=== PATIENT | female | born 1980 | race Caucasian/White ===

== ENCOUNTER 2023-04-06 16:37 | Emergency (ER) | payer SELFPAY ==
[2023-04-06] VITALS (7 sets, daily range): BP systolic 120–159; BP diastolic 80–103; PULSE 81–105; RESP 17–21; TEMP 36.7; O2SAT 96–99; BMI 28.3
[2023-04-06] MEDS: morphine 4 mg/mL SDV 1 mL IVP (16:50)
[2023-04-06] MEDS: orphenadrine 30 mg/mL Inj 2 mL 60 MG IVP (16:50)
[2023-04-06] MEDS: dexamethasone 10 mg/mL INJ IM (16:52)
--- NOTE | 2023-04-06 16:52 | W.ED.BACK ---
HPI - Back Pain/Injury General: Chief Complaint: Back Pain/Injury Stated Complaint: Fall/ Low back pain Time Seen by Provider: 04/06/23 16:38 Source: patient Mode of arrival: ambulatory History of Present Illness: 42-year-old female presents emergency room via EMS complaining of low back pain. She was at home in her kitchen she bent over to lemon picker a toaster from a bottom shelf little start back spasm reports she has a little time straightening up or moving. She reports she took 2 Aleve and 2 shots of vodka as well as 81 mg aspirin. And round she was given IV Toradol. On arrival here she is laying in the right lateral recumbent position she denies any numbness tingling lower extremities. No bowel or bladder dysfunction she has not previously had back surgery she has had nerve impingements in the low back in the past. MD elicited complaint: back pain Pertinent past history: prior back pain Exacerbating factors: none Relieving factors: none Associated symptoms: Deny abdominal pain, arthralgias, chills, change in bowel habits, difficulty walking, dysuria, fatigue, fecal incontinence, fever(s), hematuria, myalgias, nausea, numbness, syncope, tingling/numbness/burning, urinary frequency, urinary urgency, vomiting or weakness Review of Systems Const: Denies: fever(s), chills or fatigue Card: Denies: syncope Resp: Denies: dyspnea GI: Denies: abdominal pain, nausea, vomiting, fecal incontinence or change in bowel habits : Denies: dysuria, urinary urgency or hematuria Musc: Denies: neck pain or back pain Skin/Breast: Denies: rash Neuro: Denies: difficulty walking Physical Exam Const: COMMON NORMALS: no acute distress GENERAL APPEARANCE: cooperative and comfortable ORIENTATION/CONSCIOUSNESS: Yes awake, Yes oriented to person, Yes oriented to place and Yes oriented to time HENMT: COMMON NORMALS: normocephalic, atraumatic and hearing grossly normal bilaterally HEAD & SCALP: normocephalic and atraumatic Resp: COMMON NORMALS: normal respiratory effort, No retractions, No use of accessory muscles and clear to auscultation bilaterally AUSCULTATION: clear to auscultation bilaterally Cardio: COMMON NORMALS: regular rate, regular rhythm and No murmurs present (Cardio) RATE: regular rate RHYTHM: regular rhythm Extremity: COMMON NORMALS: normal to inspection, capillary refill normal, no clubbing, cyanosis or edema, no calf tenderness and no pedal edema Neuro: SENSORIUM/ORIENTATION: Yes oriented to person, Yes oriented to place and Yes oriented to time Skin: COMMON NORMALS: no rashes or lesions noted GENERAL SKIN EXAM: no rashes or lesions noted Course Vital Signs: Vital signs: Vital Signs Temperature 98.0 F 04/06/23 16:37 Pulse Rate 82 04/06/23 17:56 Respiratory Rate 20 H 04/06/23 17:01 Blood Pressure 120/91 04/06/23 17:56 Pulse Oximetry 98 04/06/23 17:56 Oxygen Delivery Me thod Room Air 04/06/23 17:56 MDM - Back Pain/Injury Medical Decision Making No red flag symptoms. Back pain improved with meds given discharged home steroid taper anti-inflammatories muscle relaxers pain medications follow-up with primary care Medical Records I reviewed the patient's medical records. Labs I reviewed the patient's lab results. No radiology studies performed this visit Discharge Plan Discharge Patient Disposition: Home Clinical Impression: Strain of lumbar region Condition: Stable Prescriptions: New tizanidine 4 mg tablet 4 mg PO Q6H PRN (Reason: muscle spasticity) Qty: 20 0RF Rx Instructions: do not exceed 3 doses per 24 hrs prednisone 20 mg tablet 20 mg PO TID Qty: 15 0RF Rx Instructions: 1 p.o. 3 times daily x3 days, 1 p.o. twice daily x2 days, 1 p.o. daily x2 days diclofenac sodium 75 mg tablet,delayed release (DR/EC) 75 mg PO Q12H PRN (Reason: pain) Qty: 20 0RF hydrocodone-acetaminophen 5-325 mg tablet 1 tab PO Q6H PRN (Reason: pain) Qty: 10 0RF Discharge Orders: Discharge ED (Routine); Ordered 04/06/23 Ordered By: Jerel Carpenter Referrals: Noel Teixeira MD [Primary Care Provider] - Discharge Diet: Usual diet Discharge Activity: Resume usual activity Patient Instructions: Acute Low Back Pain (ED), Opioid Safety, Pain Management Activity Restrictions/Additional Instructions: Thank you for choosing [facility] for your healthcare needs today. Please realize this is an emergency room and that we are providing you with a medical screening exam and this may not be complete and all inclusive of all the testing and or work up that you may need to determine your ailment or severity of your illness. It is very important that you follow up as instructed or that you return to the Emergency Department should you have concerns or if your condition changes or worsens in any way. Coding Level of Care Code ED Improvement Auditor for Bren Elam
== END 2023-04-06 18:20 | disposition home or self-care (01) ==
PROVIDERS: Emergency Provider Family Medicine; PCP Family Medicine
DX: S39.012A Strain of muscle, fascia and tendon of lower back, initial encounter (principal); X50.1XXA Overexertion from prolonged static or awkward postures, initial encounter
CPT/HCPCS: 96374; 96375; 99284; J1100; J2270; J2360

== ENCOUNTER 2025-03-19 22:03 | Emergency (ER) | payer BC, SELFPAY ==
[2025-03-19 22:08] VITALS: BP 189/114; PULSE 67; RESP 18; TEMP 36.6; O2SAT 99; BMI 28.3
--- OUTSIDE RECORDS SUMMARY | 2025-03-19 22:09 | XMS_ITS | Encounter Summary ---
Author Organization [facility] Address [address] [place] [address] Care Team Providers Care Clinical Specialist Name Role Phone Mayte Whalen Primary Care Provider [phone] Encounter Details Date Type Department Care Team (Late st Contact Info) Description 02/28/2025 Results Follow-Up [facility] Endocrinology [facility] [address] [place] [address] Judi Norton PA [address] [place] [address] T3 FREE, T4 FREE, TSH Social History Tobacco Use Types Packs/Day Years Used Date Smoking Tobacco: Former Cigarettes Smokeless Tobacco: Never Alcohol Use Standard Drinks/Week Comments Yes 2 (1 standard drink = 0.6 oz pur e alcohol) Feeling Safe Answer Date Recorded Are you in a relationship wi th someone who hurts you emotionally and/or physically? 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 Gender Identity Not on file Sexual Orientation Not on file documented as of this encounter Plan of Treatment Upcoming Encounters Date Type Department Care Team (Late st Contact Info) Description 01/01/2026 12:50 PM CDT Office Visit [facility] Endocrinology [facility] [address] [place] [address] Judi Norton PA [address] [place] [address] documented as of this encounter Visit Diagnoses Not on filedocumented in this encounter Additional Health Concerns Assessment Noted Time PHQ-9 Depression Total Score: 2 05/09/19 25 9:19 AM MARGARINE MAKER documented as of this encounter Care Teams Clinical Specialist Relationship Specialty Start Date End Date Mayte Whalen DO [address] [place] [address] PCP - General Family Practice 05/09/24 documented as of this encounter
--- OUTSIDE RECORDS SUMMARY | 2025-03-19 22:09 | XMS_ITS | Encounter Summary ---
Author Organization [facility] Address 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[employer] Gender Identity Not on file Sexual Orientation Not on file documented as of this encounter Plan of Treatment Upcoming Encounters Date Type Department Care Team (Late Contact Info) Description 01/01/2026 12:50 PM CDT Office Visit [facility] Endocrinology [facility] [address] [place] [address] Judi Norton PA [address] [place] [address] documented as of this encounter Visit Diagnoses Not on filedocumented in this encounter Additional Health Concerns Assessment Noted Time PHQ-9 Depression Total Score: 2 05/09/19 25 9:19 AM TERRITORY SALES MANAGER MEDICAL documented as of this encounter Care Teams Applied Exercise Physiologist Relationship Specialty Start Date End Date Mayte Whalen DO [address] [place] [address] PCP - General Family Practice 05/09/24 documented as of this encounter
--- OUTSIDE RECORDS SUMMARY | 2025-03-19 22:09 | XMS_ITS | Clinical Summary ---
Author Organization [facility] Travis lorenz [place] Address [address] [place] [address] Phone Care Team Providers Care Area Mechanic Name Role Phone Mayte Whalen Primary Care Provider Allergies Active Allergy Reactions Criticality Noted Date Comments Promethazine Hives High 05/09/2024 Medications omeprazole (PriLOSEC) 20 mg Capsule, Delayed Release(E.C.) Take 20 mg by mouth daily. Active methIMAzole (TAPAZOLE) 10 mg tabletIndicatio ns:Hyperthyroid ism Take 20 mg by mouth in the morning and 10 mg in the afternoon. 90 Tablet 3 5 Active dicyclomine (BENTYL) 20 mg tabletIndicatio ns:Abdominal spasms Take 1 Tablet (20 mg) by mouth 4 times daily. 120 Tablet 1 5 Active Additional Information Patient not taking.Reported on 01/01/2025 propranoloL (INDERAL) 20 mg tablet Take 1 Tablet (20 mg) by mouth 3 times daily. 270 Tablet 3 Active Active Problems Problem Noted Date Diagnosed Date Fibroadenoma of right breast in female 5 Hyperthyroidism 05/10/2024 History of hyperthyroidism 05/09/2024 Encounters Date Type Department Care Team Description 03/18/2025 External Device Data STL ABSTRACTION Provider, Abstract 03/18/2025 External Device Data STL ABSTRACTION Provider, Abstract 03/11/2025 External Device Data STL ABSTRACTION Provider, Abstract 03/04/2025 Orders Only [facility] [address] [place] [address] Judi Norton PA Hyperthyroidism (Primary Dx); Multiple thyroid nodules 02/28/2025 Results Follow-Up [facility] [address] [place] [address] Judi Norton PA T3 FREE, T4 FREE, TSH 02/25/2025 External Device Data STL ABSTRACTION Provider, Abstract 02/24/2025 9:08 AM RABBIT DRESSER - 02/24/2025 11:59 PM RABBIT DRESSER Hospital Encounter [facility] [place] [address] [phone] Judi Norton PA Discharge Disposition: Home or Self Care 02/19/2025 External Device Data STL ABSTRACTION Provider, Abstract 02/19/2025 External Device Data STL ABSTRACTION Provider, Abstract 02/12/2025 External Device Data STL ABSTRACTION Provider, Abstract 01/28/2025 External Device Data STL ABSTRACTION Provider, Abstract 01/28/2025 External Device Data STL ABSTRACTION Provider, Abstract 01/07/2025 External Device Data STL ABSTRACTION Provider, Abstract 01/01/2025 11:00 AM CDT Office Visit [place] [address] [place] [address] Judi Norton PA Hyperthyroidism (Primary Dx); Multiple thyroid nodules 12/31/2024 7:18 AM CDT - 12/31/2024 11:59 PM CDT Hospital Encounter [facility] [place] [address] [phone] Judi Norton PA Thyrotoxicosis, unspecified without thyrotoxic crisis or storm Discharge Disposition: Home or Self Care 12/31/2024 7:00 AM CDT - 12/31/2024 11:59 PM CDT Hospital Encounter [facility] Ul[facility] [place] [address] [facility] [facility] [address] [place] [address] Judi Norton PA Discharge Disposition: Home or Self Care 12/25/2024 External Device Data STL ABSTRACTION Provider, Abstract 12/17/2024 External Device Data STL ABSTRACTION Provider, Abstract from Last 3 Months Family History Medical History Relation Name Comments Hypertension Mother Relation Name Status Comments Mother Social History Tobacco Use Types Packs/Day Years Used Date Smoking Tobacco: Former Cigarettes Smokeless Tobacco: Never Tobacco Cessation:Counseling Given: Not Answered Alcohol Use Standard Drinks/Week Comments Yes 2 (1 standard drink = 0.6 oz pur e alcohol) Feeling Safe Answer Date Recorded Are you in a relationship wi th someone who hurts you emotionally and/or physically? No 05/19/2024 Comments No Sex and Gender Information Value Date Recorded Sex Assigned at Not on file Legal Sex Female 12:36 PM RABBIT DRESSER Gender Identity Not on file Sexual Orientation Not on file Last Filed Vital Signs Vital Sign Reading Time Taken Comments Blood Pressure 108/80 01/01/2025 11:07 AM CDT Pulse 78 01/01/2025 11:07 AM CDT Temperature 37.1 C (98.7 F) 07/25/2024 4:25 PM CDT Respiratory Rate 18 07/25/2024 4:25 PM CDT Oxygen Saturation 97% 01/01/2025 11:07 AM CDT Inhaled Oxygen Concentration - - Weight 80.3 kg (177 lb) 01/01/2025 11:07 AM CDT Height 165.1 cm (5' 5 ) 01/01/2025 11:07 AM CDT Body Mass Index 29.45 01/01/2025 11:07 AM CDT Plan of Treatment Upcoming Encounters Date Type Department Care Team (Late st Contact Info) Description 01/01/2026 12:50 PM CDT Office Visit [facility] Endocrinology [facility] [address] [place] [address] Judi Norton PA [address] [place] [address] Health Maintenance Due Date Last Done Comments DTAP/TDAP/TD VACCINES (1 - Tdap) 2000 HEPATITIS B VACCINES (1 of 3 - 19+ 3-dose series) 2000 HPV/Cotest (21-29) 2002 HPV VACCINES (1 - 3-dose SCDM series) 2008 CERVICAL CANCER SCREENING 2011 HPV/Cotest (30-65) 2011 PAP SMEAR 2011 Preventative Visit- Commercial 04/24/2024 INFLUENZA VACCINE (#1) 2024 BREAST CANCER SCREENING 07/01/2025 07/01/2024, 05/21 Pre-Diabetes and Diabetes Screening 05/09/202705/09 Procedures Procedure Name Priority Date/Time Associated Diagnosis Comments TSH Routine 02/24/2025 9:37 AM RABBIT DRESSER Hyperthyroidism T4 FREE Routine 02/24/2025 9:37 AM RABBIT DRESSER Hyperthyroidism T3 FREE Routine 02/24/2025 9:37 AM RABBIT DRESSER Hyperthyroidism REFERENCE LAB PROCESSING FEE Routine 02/24/2025 9:37 AM RABBIT DRESSER Hyperthyroidism US HEAD NECK TISSUES Routine 12/31/2024 8:06 AM CDT Hyperthyroidism REFERENCE LAB PROCESSING FEE Routine 12/31/2024 7:20 AM CDT History of hyperthyroidism TSH Routine 12/31/2024 7:15 AM CDT Hyperthyroidism T4 FREE Routine 12/31/2024 7:15 AM CDT Hyperthyroidism T3 FREE Routine 12/31/2024 7:15 AM CDT Hyperthyroidism MAMMO DIAG UNI RIGHT 3D ALDA W OR WO CAD Routine 07/01/2024 9:28 AM CDT Inconclusive mammogram HEMOGLOBIN A1C Routine 05/09/2024 9:57 AM RABBIT DRESSER Encounter to establish care with new doctor Brain fog Other fatigue from Last 3 Months or Most Recently Relevant to Health Maintenance Results * REFERENCE LAB PROCESSING FEE (02/24/2025 9:37 AM RABBIT DRESSER) Only the most recent of2 resultswithin the time period is included. Pathologist [facility] REFERENCE LAB SENDOUT Sent to Ref Lab 02/24/2025 11:00 AM RABBIT DRESSER [facility] Other, specify BLOOD SPECIMEN / Unknown Collection / Unknown 02/24/2025 9:37 AM RABBIT DRESSER 02/24/2025 9:37 AM RABBIT DRESSER [facility] [place] CHEMISTRY ORDERABLES Fi nal Result [facility] CLIA # [id number] [address] [place] [address] * T3 FREE (02/24/2025 9:37 AM RABBIT DRESSER) Only the most recent of2 resultswithin the time period is included. Pathologist [facility] T3 FREE 3.0 2.3 - 4.2 pg/mL [facility] Comment: Test Performed at: [facility] [place] [address] Natan Pickard MD Blood 02/24/2025 9:37 AM RABBIT DRESSER 02/25/2025 4:35 AM RABBIT DRESSER [facility] [place] CHEMISTRY ORDERABLES Fi nal Result Performing Organization Address City/[facility]/ZIP Co de Phone Number [facility] [phone] [facility] [address] [place], [place] [address]f[place] [address] * TSH (02/24/2025 9:37 AM RABBIT DRESSER) Only the most recent of2 resultswithin the time period is included. Pathologist [facility] TSH 3.32 mIU/L [facility] Comment: Reference Range > or = 20 Years 0.40-4.50 Ranges First trimester 0.26-2.66 Second trimester 0.55-2.73 Third trimester 0.43-2.91 Test Performed at: [facility] [id number] [facility] [place] [address] Natan Pickard MD Blood 02/24/2025 9:37 AM RABBIT DRESSER 02/25/2025 4:35 AM RABBIT DRESSER us [facility] [place] CHEMISTRY ORDERABLES Fi nal Result Performing Organization Address City/[facility]/ZIP Co de Phone Number [facility] [phone] [facility] [address] [place] [phone] * T4 FREE (02/24/2025 9:37 AM RABBIT DRESSER) Only the most recent of2 resultswithin the time period is included. T4 FREE 1.0 0.8 - 1.8 ng/dL [facility] Comment: Test Performed at: [facility] [address] [place] [address] Natan Pickard MD Blood 02/24/2025 9:37 AM RABBIT DRESSER 02/25/2025 4:35 AM RABBIT DRESSER us [employer] [place] CHEMISTRY ORDERABLES Fi nal Result Performing Organization Address [facility] Co de Phone Number [facility] [phone] [facility] [address] * US HEAD NECK TISSUES (12/31/2024 8:06 AM CDT) Anatomical Region Laterality Modality Head Ultrasound 12/31/2024 8:06 AM CDT Impressions 12/31/2024 3:22 PM CDT IMPRESSION: Left thyroid nodules as above. The nodules described on the prior study are largely unchanged. The additional nodules that were not described previously are likely present in retrospect. Narrative 12/31/2024 3:22 PM CDT Exam: US HEAD NECK TISSUES Date and time of exam: 12/31/2024 8:06 AM Reason for exam: Hyperthyroidism. Comparison: 05/21/2024. Findings: Left Thyroid Size: 1.6 x 5.3 x 2.5 cm. Volume 10.4 mL. The right thyroid lobe is surgically absent. No significant residual thyroid tissue noted. Nodule 1: Measures 1.8 x 1.0 x 0.9 cm in the superior left thyroid gland with internal color flow. No significant change in size from the previous study.. Composition: Solid or almost completely solid. Echogenicity: Hypoechoic. Shape: Wider than tall. Margin: Smooth. Echogenic Foci: None or large comet-tail artifacts. ACR TIRADS 4 (Moderately Suspicious) FNA if greater than or equal to 1.5 cm. Follow up if greater than or equal to 1.0 cm. Nodule 2: Measures 2.1 x 1.0 x 1.5 cm in the inferior left thyroid lobe. Composition: Mixed cystic and solid. Echogenicity: Isoechoic. Shape: [id number]. Margin: Ill-defined. Echogenic Foci: None or large comet-tail artifacts. ACR TIRADS 2 (Not Suspicious). No FNA recommended. Nodule 3: Measures 1.1 x 0.8 x 1.1 cm in the mid thyroid gland. Composition: Solid or almost completely solid. Echogenicity: Hyperechoic or Isoechoic. Shape: Wzofg-nlkp-viie. Margin: Smooth. Echogenic Foci: None or large comet-tail artifacts. ACR TIRADS 3 (Mildly Suspicious). FNA if greater than or equal to 2.5 cm. Follow if greater than or equal to 1.5 cm. Nodule 4: Measures 2.3 x 0.5 x 1.6 cm extending into the thyroid isthmus. Composition: Solid or almost completely solid. Echogenicity: Isoechoic. Shape: Nbbjd-vyxs-dlna. Margin: Smooth. Echogenic Foci: None or large comet-tail artifacts. ACR TIRADS 3 (Mildly Suspicious). FNA if greater than or equal to 2.5 cm. Follow if greater than or equal to 1.5 cm. Procedure Note Sujit Rucker MD - 12/31/2024 Exam: US HEAD NECK TISSUES Date and time of exam: 12/31/2024 8:06 AM Reason for exam: Hyperthyroidism. Comparison: 05/21/2024. Findings: Left Thyroid Size: 1.6 x 5.3 x 2.5 cm. Volume 10.4 mL. The right thyroid lobe is surgically absent. No significant residual thyroid tissue noted. Nodule 1: Measures 1.8 x 1.0 x 0.9 cm in the superior left thyroid gland with internal color flow. No significant change in size from the previous study.. Composition: Solid or almost completely solid. Echogenicity: Hypoechoic. Shape: Wider than tall. Margin: Smooth. Echogenic Foci: None or large comet-tail artifacts. ACR TIRADS 4 (Moderately Suspicious) FNA if greater than or equal to 1.5 cm. Follow up if greater than or equal to 1.0 cm. Nodule 2: Measures 2.1 x 1.0 x 1.5 cm in the inferior left thyroid lobe. Composition: Mixed cystic and solid. Echogenicity: Isoechoic. Shape: Wplef-negw-bzkq. Margin: Ill-defined. Echogenic Foci: None or large comet-tail artifacts. ACR TIRADS 2 (Not Suspicious). No FNA recommended. Nodule 3: Measures 1.1 x 0.8 x 1.1 cm in the mid thyroid gland. Composition: Solid or almost completely solid. Echogenicity: Hyperechoic or Isoechoic. Shape: Oyrpe-olhe-gqky. Margin: Smooth. Echogenic Foci: None or large comet-tail artifacts. ACR TIRADS 3 (Mildly Suspicious). FNA if greater than or equal to 2.5 cm. Follow if greater than or equal to 1.5 cm. Nodule 4: Measures 2.3 x 0.5 x 1.6 cm extending into the thyroid isthmus. Composition: Solid or almost completely solid. Echogenicity: Isoechoic. Shape: Maawd-uycn-ebso. Margin: Smooth. Echogenic Foci: None or large comet-tail artifacts. ACR TIRADS 3 (Mildly Suspicious). FNA if greater than or equal to 2.5 cm. Follow if greater than or equal to 1.5 cm. IMPRESSION: Left thyroid nodules as above. The nodules described on the prior study are largely unchanged. The additional nodules that were not described previously are likely present in retrospect. us Judi Silveira US ORDERABLES Final R esult * (ABNORMAL) MAMMO 3D ALDA DIAGNOSTIC UNI RT 3D W OR WO CAD (07/01/2024 9:28 AM CDT) Anatomical Region Laterality Modality Breast Right Mammography 07/01/2024 9:28 AM CDT Impressions 07/02/2024 11:10 AM CDT IMPRESSION: 1. Multiple probably benign right breast masses as above. Short interval follow-up is recommended with a right breast ultrasound in 6 months. These likely represent fibroadenomas. BI-RADS ASSESSMENT: 3 - Probably Benign RECOMMENDATION: Interval follow-up is recommended. The patient was given verbal and written results and recommendations by the technologist. [id number] Narrative 07/02/2024 11:10 AM CDT EXAM: MAMMO 3D ALDA DIAGNOSTIC UNI RT 3D W OR WO CAD, MAMMO BREAST US RIGHT LTD INDICATION: 44-year-old asymptomatic woman who returns for additional imaging of the mass seen on a Baseline screening mammogram. No first degree family history of breast or ovarian cancer. COMPARISON: Baseline screening mammogram May 21, 2024. ULTRASOUND Patient initially began imaging in the ultrasound suite. A right diagnostic mammogram was then performed for further evaluation. RIGHT BREAST: A limited ultrasound was performed with real-time scanning. There are multiple circumscribed macrolobulated hypoechoic masses that are probably benign and likely represent fibroadenomas as follows: 10:00, 7 cm location-1.6 x 1.4 x 1.3 cm mass that corresponds to the mass seen on the recent screening mammogram. There is no internal vascular flow. A vessel is seen coursing up to the mass on the color flow images. 10:00, 7 cm location-0.4 cm 9:30, 9 cm location-1.1 cm 6:30, 1 cm location-0.6 cm 6:00, 2 cm location-0.6 cm 2:00, 4 cm location-0.6 cm 1:00, 6 cm location-0.7 cm 1:00, subareolar location-0.5 cm The axilla demonstrates sonographically normal axillary lymph nodes. BREAST COMPOSITION: The breasts are heterogeneously dense, which may obscure small masses. DIAGNOSTIC RIGHT MAMMOGRAM There is a 1.6 cm mass at the 10:00 location that is macrolobulated and partially obscured and corresponds to the largest mass seen sonographically. There is a subcentimeter circumscribed macrolobulated mass in the central breast, within the posterior depth, directly behind the nipple. Oval asymmetries are seen in the upper inner quadrant on the CC view. Additional ultrasound was performed and is reported above. Procedure Note Cierra Cummings MD - 07/02/2024 EXAM: MAMMO 3D ALDA DIAGNOSTIC UNI RT 3D W OR WO CAD, MAMMO BREAST US RIGHT LTD INDICATION: 44-year-old asymptomatic woman who returns for additional imaging of the mass seen on a Baseline screening mammogram. No first degree family history of breast or ovarian cancer. COMPARISON: Baseline screening mammogram May 21, 2024. ULTRASOUND Patient initially began imaging in the ultrasound suite. A right diagnostic mammogram was then performed for further evaluation. RIGHT BREAST: A limited ultrasound was performed with real-time scanning. There are multiple circumscribed macrolobulated hypoechoic masses that are probably benign and likely represent fibroadenomas as follows: 10:00, 7 cm location-1.6 x 1.4 x 1.3 cm mass that corresponds to the mass seen on the recent screening mammogram. There is no internal vascular flow. A vessel is seen coursing up to the mass on the color flow images. 10:00, 7 cm location-0.4 cm 9:30, 9 cm location-1.1 cm 6:30, 1 cm location-0.6 cm 6:00, 2 cm location-0.6 cm 2:00, 4 cm location-0.6 cm 1:00, 6 cm location-0.7 cm 1:00, subareolar location-0.5 cm The axilla demonstrates sonographically normal axillary lymph nodes. BREAST COMPOSITION: The breasts are heterogeneously dense, which may obscure small masses. DIAGNOSTIC RIGHT MAMMOGRAM There is a 1.6 cm mass at the 10:00 location that is macrolobulated and partially obscured and corresponds to the largest mass seen sonographically. There is a subcentimeter circumscribed macrolobulated mass in the central breast, within the posterior depth, directly behind the nipple. Oval asymmetries are seen in the upper inner quadrant on the CC view. Additional ultrasound was performed and is reported above. IMPRESSION: 1. Multiple probably benign right breast masses as above. Short interval follow-up is recommended with a right breast ultrasound in 6 months. These likely represent fibroadenomas. BI-RADS ASSESSMENT: 3 - Probably Benign RECOMMENDATION: Interval follow-up is recommended. The patient was given verbal and written results and recommendations by the technologist. [id number] Aggie Velez [facility] MAMMO ORDERABLES Final Res ult * HEMOGLOBIN A1C (05/09/2024 9:57 AM RABBIT DRESSER) HEMOGLOBIN A1C 5.3 <5.7 % of total Hgb [facility] Comment: For the purpose of screening for the presence of diabetes: <5.7% Consistent with the absence of diabetes 5.7-6.4% Consistent with increased risk for diabetes (prediabetes) > or =6.5% Consistent with diabetes This assay result is consistent with a decreased risk of diabetes. Currently, no consensus exists regarding use of hemoglobin A1c for diagnosis of diabetes in children. According to [place] Diabetes Association (ADA) guidelines, hemoglobin A1c <7.0% represents optimal control in non- diabetic patients. Different metrics may apply to specific patient populations. Standards of Medical Care in Diabetes(ADA). ESTIMATED AVERAGE GLUCOSE (MG/DL) 105 mg/dL [facility] ESTIMATED AVERAGE GLUCOSE (MMOL/L) 5.8 mmol/L [facility] Comment: Test Performed at: [facility] [address] [facility] [email or web address] [id number] Natan Pickard MD Blood 05/09/2024 9:57 AM RABBIT DRESSER 05/10/2024 2:51 AM RABBIT DRESSER Aggie Velez [facility] CHEMISTRY ORDERABLES Final Result [facility] [phone] [facility] [address] [facility] [id number] from Last 3 Months or Most Recently Relevant to Health Maintenance Insurance Care Teams Area Mechanic Relationship Specialty Start Date End Date Mayte Whalen DO [address] [place] [phone] PCP - General Family Practice 05/09/24
--- OUTSIDE RECORDS SUMMARY | 2025-03-19 22:09 | XMS_ITS | Encounter Summary ---
Author Organization [facility] Address [address] [place] [address] Care Team Providers Care Auctioneer Automobile Name Role Phone Koby, Mayte Yenny DOSS Primary Care Provider [phone] Encounter Details Date Type Department Care Team [...] on file Legal Sex Female 12:36 PM MANAGER OF CHANGE Gender Identity Not on file Sexual Orientation Not on file documented as of this encounter Plan of Treatment Upcoming Encounters Date Type Department Care Team (Late Contact Info) Description 01/01/2026 12:50 PM CDT Office Visit [facility] Endocrinology [facility] [address] [place] [address] Judi Norton PA [address] [place] [address] documented as of this encounter Visit Diagnoses Not on filedocumented in this encounter Additional Health Concerns Assessment Noted Time PHQ-9 Depression Total Score: 2 05/09/19 25 9:19 AM MANAGER OF CHANGE documented as of this encounter Care Teams Auctioneer Automobile Relationship Specialty Start Date End Date Mayte Whalen DO [address] [place] [address] PCP - General Family Practice 05/09/24 documented as of this encounter
--- OUTSIDE RECORDS SUMMARY | 2025-03-19 22:09 | XMS_ITS | Encounter Summary ---
Author Organization [facility] Address [address] [place] [address] Care Team Providers Care Truck Driver Supervisor Name Role Phone Koby, Mayte Yenny DOSS Primary Care Provider [phone] Encounter Details Date Type Department Care Team (Late Contact Info) Description 03/11/2025 External Device Data STL ABSTRACTION Provider, [...] on file Legal Sex Female 12:36 PM NUCLEAR REACTOR ENGINEER Gender Identity Not on file Sexual Orientation Not on file documented as of this encounter Plan of Treatment Upcoming Encounters Date Type Department Care Team (Late Contact Info) Description 01/01/2026 12:50 PM CDT Office Visit [facility] Endocrinology [facility] [address] [place] [address] Judi Norton PA [address] [place] [address] documented as of this encounter Visit Diagnoses Not on filedocumented in this encounter Additional Health Concerns Assessment Noted Time PHQ-9 Depression Total Score: 2 05/09/19 25 9:19 AM NUCLEAR REACTOR ENGINEER documented as of this encounter Care Teams Truck Driver Supervisor Relationship Specialty Start Date End Date Mayte Whalen DO [address] [place] [address] PCP - General Family Practice 05/09/24 documented as of this encounter
--- NOTE | 2025-03-19 22:13 | ECG_ITS ---
[facility] Test Date: 2025-03-19 Pat Name: Elissa Beyer Department: Room: Gender: Female Knocker Out: : 1980 Requested By: Jerel Ramon Order Number: [id number] Licha MD: Kala Self M.D. Measurements Intervals [place] Rate: 66 P: 42 MS: 161 QRS: 8 QRSD: 79 T: 48 QT: 409 QTc: 429 Interpretive Statements SINUS RHYTHM No previous ECG available for comparison Electronically Signed On 03-20-2025 17:24:50 [facility] by Kala Self M.D. [email or web address]
[2025-03-19 22:14] VITALS: BP 189/114; PULSE 67; RESP 18; TEMP 36.6; O2SAT 99
[2025-03-19 22:59] VITALS: BP 168/90; PULSE 64; RESP 16; O2SAT 96
--- NOTE | 2025-03-19 22:59 | ECG_ITS ---
[facility] Test Date: 2025-03-19 Pat Name: Elissa Beyer Department: Room: Gender: Female Process Mechanic: : 1980 Requested By: Jerel Ramon Order Number: [id number] Licha MD: Kala Self M.D. Measurements Intervals [place] Rate: 59 P: 52 IN: 158 QRS: 13 QRSD: 82 T: 42 QT: 425 QTc: 422 Interpretive Statements SINUS BRADYCARDIA Compared to ECG 03/19/2025 22:20:07 Sinus rhythm no longer present Electronically Signed On 03-20-2025 17:24:33 METEOROLOGICAL OBSERVER by Kala Self M.D. [email or web address]
[2025-03-19 23:06] LABS: Hematocrit 43.1 % (36-47); Hemoglobin 14.70 g/dL (11.27-16.99); Mean Corpuscular HGB Conc 34.1 g/dL (30-55); Mean Corpuscular Hemoglobin 33.0 pg (27-33); Mean Corpuscular Volume 96.6 fl (85-98); Nucleated Red Blood Cells % 0 %; Platelet Count 299 10^3/cmm (157-399); Red Blood Count 4.46 10^6/uL (3.85-5.65); White Blood Count 9.46 10^3/uL (3.29-11.43)
--- NOTE | 2025-03-19 23:21 | W.ED.RECABL ---
HPI - Recheck/Abnormal Lab/Rx General: Chief Complaint: Recheck/Abnormal Lab/Rx Stated Complaint: n/v high BP 182/108 numbness L side Time Seen by Provider: 03/19/25 22:50 History of Present Illness: 44-year-old female presents emergency room complaining of headache elevated blood pressure. She had some numbness and tingling at times some difficulty with vision. No vomiting or diarrhea no speech difficulty. Related Data Previous Rx's ?Medication ?Instructions ?Recorded diclofenac sodium 75 mg 75 mg PO Q12H PRN pain #20 tabs 04/06/23 tablet,delayed release hydrocodone 5 mg-acetaminophen 325 1 tab PO Q6H PRN pain #10 tabs 04/06/23 mg tablet prednisone 20 mg tablet 20 mg PO TID #15 tabs 04/06/23 tizanidine 4 mg tablet 4 mg PO Q6H PRN muscle spasticity 04/06/23 #20 tabs amlodipine 5 mg tablet 5 mg PO DAILY #30 tabs 03/20/25 Allergies Allergy/AdvReac Type Severity Reaction Status Date / Time promethazine Allergy ALGY-Hives Verified 04/06/23 16:49 Review of Systems Const: Denies: fever(s) or chills Card: Denies: chest pain Resp: Denies: dyspnea GI: Denies: abdominal pain : Denies: dysuria, urinary frequency or urinary urgency Musc: Denies: neck pain or back pain Skin/Breast: Denies: rash Neuro: Reports: headache(s) [facility] Female Reproductive History: Date of last menstrual period: 03/14/25 Physical Exam Const: COMMON NORMALS: no acute distress GENERAL APPEARANCE: cooperative and comfortable ORIENTATION/CONSCIOUSNESS: Yes awake, Yes oriented to person, Yes oriented to place and Yes oriented to time HENMT: COMMON NORMALS: normocephalic, atraumatic and hearing grossly normal bilaterally HEAD & SCALP: normocephalic and atraumatic Resp: COMMON NORMALS: normal respiratory effort, No retractions, No use of accessory muscles and clear to auscultation bilaterally AUSCULTATION: clear to auscultation bilaterally Cardio: COMMON NORMALS: regular rate, regular rhythm and No murmurs present (Cardio) RATE: regular rate RHYTHM: regular rhythm GI: COMMON NORMALS: Soft to palpation and No hepatosplenomegaly present AUSCULTATION: Yes normoactive bowel sounds PALPATION: Yes Soft to palpation, No Tenderness to palpation present (GI), No Guarding due to palpation present (GI) and Yes No hepatosplenomegaly present Extremity: COMMON NORMALS: normal to inspection, capillary refill normal, no clubbing, cyanosis or edema, no calf tenderness and no pedal edema Neuro: SENSORIUM/ORIENTATION: Yes oriented to person, Yes oriented to place and Yes oriented to time OTHER: No focal neurologic deficits noted. NIH 0 Skin: COMMON NORMALS: no rashes or lesions noted GENERAL SKIN EXAM: no rashes or lesions noted Course Vital Signs: Vital signs: Vital Signs Temperature 98 F 03/19/25 22:14 Pulse Rate 70 03/20/25 00:41 Respiratory Rate 16 03/20/25 00:30 Blood Pressure 162/94 03/20/25 00:41 Pulse Oximetry 98 03/20/25 00:41 Oxygen Delivery Me thod Room Air 03/19/25 23:50 MDM - Recheck/Abnormal Lab/Rx Medical Decision Making Medical decision making Social determinants: Good social support I reviewed the patient's medical record. I reviewed the patient's current home meds Alternate historians: None Differential diagnosis TIA versus accelerated hypertension Lab Review: Labs reviewed as found in the chart no clinically significant elevations Imaging: None Assessment of risk: Level of risk: Low Hospitalization considerations: Reexamination: No focal neurologic deficits noted on initial exam NIH was 0. On repeat exam headache is resolved patient has no further symptoms Assessment and plan: Discharge home I do not believe patient had any stroke and think this is all related to her elevated blood pressure she has no focal neurologic findings on exam on arrival or on repeat exam will discharge home continue propranolol add amlodipine 5 mg daily and follow-up with primary care doctor within the week Medical Records I reviewed the patient's medical records. Lab Data I reviewed the patient's lab results. 03/19/25 22:51 03/19/25 22:51 Laboratory Results WBC 9.46 10^3/uL (3.29-11.43) 03/19/25 22:51 RBC 4.46 10^6/uL (3.85-5.65) 03/19/25 22:51 Hgb 14.70 g/dL (11.27-16.99) 03/19/25 22:51 Hct 43.1 % (36-47) 03/19/25 22:51 MCV 96.6 fl (85-98) 03/19/25 22:51 MCH 33.0 pg (27-33) 03/19/25 22:51 MCHC 34.1 g/dL (30-55) 03/19/25 22:51 RDW 13.1 % (12.1-15.1) 03/19/25 22:51 Plt Count 299 10^3/cmm (157-399) 03/19/25 22:51 MPV 9.7 fL (7.4-10.4) 03/19/25 22:51 Neut % (Auto) 71.3 % 03/19/25 22:51 Lymph % (Auto) 20.7 % 03/19/25 22:51 Evans % (Auto) 5.8 % 03/19/25 22:51 Eos % (Auto) 1.1 % 03/19/25 22:51 Baso % (Auto) 0.6 % 03/19/25 22:51 Neut # (Auto) 6.74 10^3/uL (1.8-7.7) 03/19/25 22:51 Lymph # (Auto) 2.0 10^3/uL (0.8-4.8) 03/19/25 22:51 Evans # (Auto) 0.6 10^3/uL (0.2-0.9) 03/19/25 22:51 Eos # (Auto) 0.1 10^3/uL (0.0-0.8) 03/19/25 22:51 Baso # (Auto) 0.1 10^3/uL (0.0-0.1) 03/19/25 22:51 Nucleated RBC % (auto) 0 % 03/19/25 22:51 Nucleated RBCs # 0.0 /100WBC 03/19/25 22:51 Sodium 139 mmol/L (136-145) 03/19/25 22:51 Potassium 3.6 mmol/L (3.5-5.1) 03/19/25 22:51 Chloride 101 mmol/L (98-107) 03/19/25 22:51 Carbon Dioxide 24 mmol/L (22-29) 03/19/25 22:51 Anion Gap 17.6 (5-19) 03/19/25 22:51 BUN 7 mg/dL (6-20) 03/19/25 22:51 Creatinine 0.7 mg/dL (0.5-0.9) 03/19/25 22:51 GFR Calculation 91.3 mL/min (90-130) 03/19/25 22:51 Glucose 117 mg/dL (65-115) H 03/19/25 22:51 Calculated Osmolality 287 mOsm/kg (285-295) 03/19/25 22:51 Calcium 9.0 mg/dL (8.5-10.5) 03/19/25 22:51 Total Bilirubin 0.5 mg/dL (0.15-1.2) 03/19/25 22:51 AST 26 U/L (0-32) 03/19/25 22:51 ALT 27 U/L (0-33) 03/19/25 22:51 Alkaline Phosphatase 116 U/L (35-105) H 03/19/25 22:51 Total Protein 7.3 g/dL (6.6-8.7) 03/19/25 22:51 Albumin 4.6 g/dL (3.5-5.2) 03/19/25 22:51 Globulin 2.7 g/dL (1.3-4.6) 03/19/25 22:51 No radiology studies performed this visit Discharge Plan Discharge Patient Disposition: Home Clinical Impression: HTN (hypertension) Condition: Stable Prescriptions: New amlodipine 5 mg tablet 5 mg PO DAILY Qty: 30 0RF No Action tizanidine 4 mg tablet 4 mg PO Q6H PRN (Reason: muscle spasticity) Qty: 20 0RF Rx Instructions: do not exceed 3 doses per 24 hrs prednisone 20 mg tablet 20 mg PO TID Qty: 15 0RF Rx Instructions: 1 p.o. 3 times daily x3 days, 1 p.o. twice daily x2 days, 1 p.o. daily x2 days diclofenac sodium 75 mg tablet,delayed release (DR/EC) 75 mg PO Q12H PRN (Reason: pain) Qty: 20 0RF hydrocodone-acetaminophen 5-325 mg tablet 1 tab PO Q6H PRN (Reason: pain) Qty: 10 0RF Discharge Orders: Discharge ED (Routine); Ordered 03/20/25 Ordered By: Jerel Carpenter Referrals: Aggie Velez FNP [Primary Care Provider] Discharge Diet: Usual diet Discharge Activity: Resume usual activity Patient Instructions: Opioid Safety, Pain Management, Patient Portal & Elena Instructions Activity Restrictions/Additional Instructions: [facility] you [facility] needs today. It is very important that you follow up as instructed or that you return to the Emergency Department should you have concerns or if your condition changes or worsens in any way. Emergency department visits are focused on emergent conditions, in some cases you may require further evaluation on an outpatient basis. You are seen in the emergency room with complaint of elevated blood pressure with headaches. Your symptoms improved as your blood pressure became controlled with medications given in the emergency room. Continue current medications also recommend that you add amlodipine 5 mg daily and follow-up with your doctor within the next week. (Please note that included in your discharge packet is information concerning opioid safety and pain management. This information is given to all patients were discharged from the ER regardless of their discharge diagnosis or the medicines they usually take or are prescribed.) Print Language: Tunisian Coding Level of Care Code ED Certified Fire Investigator for Bren Elam
[2025-03-19 23:24] LABS: Alanine Aminotransferase 27 U/L (0-33); Albumin Level 4.6 g/dL (3.5-5.2); Alkaline Phosphatase 116 U/L (35-105); Anion Gap 17.6 (5-19); Aspartate Amino Transferase 26 U/L (0-32); Blood Urea Nitrogen 7 mg/dL (6-20); Calcium 9.0 mg/dL (8.5-10.5); Carbon Dioxide 24 mmol/L (22-29); Chloride 101 mmol/L (98-107); Globulin 2.7 g/dL (1.3-4.6); Glucose 117 mg/dL (65-115); Osmolality Calculated 287 mOsm/kg (285-295); Potassium 3.6 mmol/L (3.5-5.1); Sodium 139 mmol/L (136-145); Total Protein 7.3 g/dL (6.6-8.7)
[2025-03-19 23:50] VITALS: BP 131/89; PULSE 85; O2SAT 96
[2025-03-20] VITALS: BP 139/87; PULSE 62; O2SAT 97
[2025-03-20 00:30] VITALS: BP 162/64; PULSE 65; RESP 16; O2SAT 98
[2025-03-20 00:41] VITALS: BP 162/94; PULSE 70; O2SAT 98
== END 2025-03-20 00:42 | disposition home or self-care (01) ==
PROVIDERS: Emergency Provider Family Medicine; PCP Nurse Practitioner Family
DX: I10 Essential (primary) hypertension (principal)
CPT/HCPCS: 36415; 80053; 85025; 93005; 99284